=== PATIENT | female | born 1955 | race Caucasian/White ===

== ENCOUNTER 2016-05-05 07:50 | Day surgery (SDC) | payer OTHER ==
[~2016-05-05] VITALS: Ht 142.2 cm; Wt 42.0 kg
[~2016-05-05 07:50] MED LIST: ALPR-411 PO; ASPEC81 PO; CLINDAMYCIN 600 MG/54 ML D5W IV SCH; CRG625 PO; LSN5 PO; MULT-884 PO
[2016-05-05] MEDS ORDERED: ROSU20TA PO (08:34)
[2016-05-05] MEDS ORDERED: ZOLP5TAB PO (08:34)
[2016-05-05 08:36] VITALS: BP 174/71; PULSE 72; TEMP 36.8; O2SAT 94; Ht 142.2 cm; Wt 42.0 kg
--- NOTE | 2016-05-05 09:08 | History & Physical Bridge Note ---
H&P Re-Evaluation Bridge Note: I have examined the patient, reviewed the History & Physical and in the interval since the performance of the History & Physical I have noted the following changes of clinical significance: No changes noted
--- NOTE | 2016-05-05 09:08 | Procedure Note ---
Pre-Mod Sedation Assessment General Date of Moderate Sedation: May 05, 2016. Vital Signs: Vital Signs Past 12 Hours Date Time Temp Pulse Resp B/P Pulse Ox O2 Delivery O2 Flow Rate FiO2 05/05/16 08:36 36.8 72 20 174/71 94 Room Air Review Cardiovascular: regular rate, rhythm Abdomen: soft Lungs: lungs clear Airway Class: II Pre-Sedation Airway Assessment Oral Cavity: Dentures Able to Visualize Vocal Cords: No Short Thick Neck: No Hx of Sleep Apnea: No Smoking Status: Light Tobacco Smoker Mallampati Classification: Class II ASA Classification: Class II Procedure Planning Contraindications-for Mod Sed: None Yes Notes The planned sedation has been discussed with the patient and consent obtained. I have identified the patient, determined the appropriateness of sedation and have assessed the patient immediately prior to the procedure. All medicine(s) and interventions are by my order.
[2016-05-05] MEDS ORDERED: MIDAZOLAM HCL 5 MG/ML 1 ML VIAL ONE (09:24)
[2016-05-05] MEDS ORDERED: LIDOCAINE HCL 1% 20 ML VIAL ONE (09:24)
[2016-05-05] MEDS ORDERED: FENTANYL CITRATE INJ 50 MCG/1 ML 2 ML VIAL ONE (09:24)
[2016-05-05] MEDS ORDERED: BUPIVACAINE 0.5 % 5 MG/1 ML MPF 30ML VIAL ONE (09:24)
[2016-05-05] MEDS ORDERED: BACITRACIN 50000 UNIT VIAL ONE (09:25)
--- NOTE | 2016-05-05 10:25 | Procedure Note ---
Post-Mod Sedation Assessment General Date of Moderate Sedation May 05, 2016. Vital Signs: Vital Signs Past 12 Hours Date Time Temp Pulse Resp B/P Pulse Ox O2 Delivery O2 Flow Rate FiO2 05/05/16 10:15 68 18 112/60 99 Room Air 05/05/16 08:36 36.8 72 20 174/71 94 Room Air Review - Discharge Criteria Vital Signs Stable: Yes Alert/Oriented/Conversant: Yes Returned to Baseline Mental St: Yes Nausea Absent/Minimal: Yes Pain/Discomfort/Absent/Minimal: Yes Normal/Baseline Respirations: Yes Active Bleeding?: No Pt Received D/C Instructions: N/A Prescriptions Given: None Specific Proced. D/C Criteria Distal Pulses Present (Cardiac: N/A Groin site assessed-Card Cath: N/A Voided Prior To Discharge: N/A Discharged Patients Adult Escort/Transportation: N/A
--- NOTE | 2016-05-05 10:27 | [facility] Post Operative Brief Note ---
Immediate Operative Summary Operative Date May 05, 2016. Pre-Operative Diagnosis biv icd at [facility], [facility] Post-Operative Diagnosis same Procedure(s) Performed bi ventricular rate responsive icd generator change Surgeon chris ace Electrical Equipment Technician Surgeon(s) none Estimated Blood Loss <5cc Findings none Fluids (cc crystalloids) 100cc Specimens none Drains none Anesthesia 4mg versed and 100mcg fentanyl Complication(s) None Disposition asu/mtu
--- NOTE | 2016-05-05 10:31 | Discharge Instructions ---
Discharge Instructions Date of Service May 05, 2016. Visit Reason for Visit: Idiopathic Cardiomyopathy Discharge Discharge Diagnosis / Problem: BiV ICD at [facility] Discharge Goals Goal(s): Improve function Activity Recommendations Activity Limitations: as noted below Lifting Limitations: no more than 10 pounds (no more than 10 pounds with left arm for 2 weeks) Shower/Bathe: tomorrow Driving or Machine Use: resume 1 day after discharge Anesthesia . Post Anesthesia Instructions: If you have had General Anesthesia or IV Sedation: * Do not drive today. * Resume driving when surgeon permits. * Do not make important decisions or sign legal documents today. * Call surgeon for: 1. Temperature elevations greater than 101 degrees F. 2. Uncontrollable pain. 3. Excessive bleeding. 4. Persistent nausea and vomiting. 5. Medication intolerance (nausea, vomiting or rash). * For nausea and vomiting use only clear liquids such as: tea, soda, bouillon until nausea subsides, then gradually increase diet as tolerated. * If you have any concerns or questions, call your surgeon's office. If physician is unavailable and it is an emergency, call 911 or go to the nearest emergency room. . Instructions / Follow-Up Instructions / Follow-Up ACTIVITY RECOMMENDATIONS: * Do not raise affected arm over head for 2 weeks. SPECIAL CARE INSTRUCTIONS: * If bleeding occurs, apply direct pressure to area for 5 minutes. * Call your doctor if you have severe pain, fever, drainage or bleeding at site. * Keep dressing on and dry for 48 hours then remove. * Keep any scheduled doctor's appointment. * Implant Card - hand held device with website information given. SKIN IRRITATION: * You may experience some redness and/or swelling in the area where radiation was administered. If any skin irritation occurs, please contact your family physician. FOLLOW UP VISIT: Keep any scheduled doctor appointments. Diet Recommendations Recommended Home Diet: resume previous diet, low sodium Procedures Procedures Performed: bi ventricular rate responsive icd generator change Pending Studies Studies pending at discharge: no Medical Emergencies . Who to Call and When: Medical Emergencies: If at any time you feel your situation is an emergency, please call 911 immediately. . Non-Emergent Contact Non-Emergency issues call your: Implementation Director . . "Provider Documentation" section prepared by Magaly Calhoun.
[2016-05-05 10:35] VITALS: BP 136/63; PULSE 76; TEMP 36.3; O2SAT 97
[2016-05-05 10:45] VITALS: O2SAT 96
[2016-05-05 10:46] VITALS: BP 131/83; PULSE 99; O2SAT 94
[2016-05-05 11:01] VITALS: BP 154/71; PULSE 66; O2SAT 96
[2016-05-05 11:15] VITALS: BP 149/62; PULSE 68; TEMP 36.6; O2SAT 98
--- NOTE | 2016-05-05 11:31 | OPERATIVE REPORT ---
DATE OF OPERATION: 05/05/2016 PREOPERATIVE DIAGNOSIS: Biventricular implantable cardiac defibrillator at [facility], nonischemic cardiomyopathy. POSTOPERATIVE DIAGNOSIS: Same. PROCEDURE: Rate responsive biventricular implantable cardiac defibrillator generator change under monitored conscious sedation. SURGEON: Dr. Magaly Calhoun. ENDOSCOPY SUPPORT SPECIALIST: None. ANESTHESIA: Monitored conscious sedation, a total of 4 mg of Versed, 100 mcg of fentanyl. Administered via the geotechnical laboratory technician nurse Radha Krishnan. START TIME: 9:38. END TIME: 10:15. INTRAVENOUS FLUIDS: 100 mL BLOOD LOSS: Less than 10 mL COMPLICATIONS: None. CONDITION: Stable. URINE OUTPUT: Not applicable. SPECIMENS: None. FINDINGS: None. DRAINS: None. INDICATIONS: This is a 60-year-old female who has a past medical history of nonischemic cardiomyopathy, initially diagnosed in 2011 with an ejection fraction of 30%. She underwent a biventricular ICD at that time. Her ejection fraction has normalized by her most recent echo in 2017. Chronic systolic congestive heart failure, [place] Heart Association class II, left bundle-branch block, hyperlipidemia, celiac disease, iron deficiency anemia, chronic tobacco use. The patient was found on most recent device interrogation to have hit [facility] and was recommended generator change. CONSENT: Consent was obtained prior to the patient going into the electrophysiology lab. The patient was explained the risks, benefits and alternatives to the procedure. Risks include but not limited to sudden cardiac , cardiac arrhythmias, cerebrovascular accident, myocardial infarction, bleeding and infection. The patient understood these risks and agreed to the procedure as planned. Informed consent was obtained. DESCRIPTION OF PROCEDURE: The patient was brought into the electrophysiology lab in a fasting state. She was connected to continuous music composer. A timeout was performed to ensure patient's identity and procedure correctly. The patient was prepped and draped over the left infraclavicular space in normal surgical standard fashion. Monitored conscious sedation was given throughout the procedure for the patient's comfort level. Wall precautions were maintained throughout the procedure. The patient received prophylactic antibiotics prior to incision. 15 mL of 1% lidocaine-bupivacaine mixture were given over the prior surgical incision. Incision was made over the prior surgical incision. Blunt dissection was performed down to the pulse generator. The capsule was disrupted using iris scissors and the defibrillator was freed from the capsule. The defibrillator was then removed from the pocket and detached from the leads. The leads were tested intraoperatively, see below for results. The capsule was disrupted inferiorly and caudally to allow for new blood flow. The pocket was flushed with copious amounts of bacitracin saline wash and inspected for hemostasis. The new defibrillator was then attached to the leads, making sure that the pins were in appropriate position, passed set screws, and the set screws were all tightened. The new defibrillator was then placed in the pocket, making sure that the leads were lying flat beneath the device. The incision was then closed in a 3-layer fashion using 2-0 Vicryl interrupted suture, followed by 3-0 Vicryl interrupted suture, followed by a 4-0 Monocryl running stitch, and Dermabond was applied, followed then by a pressure dressing. EQUIPMENT: 1. Explanted generator is a [employer] CRTD, implanted 08/27/2011, serial #[id number], model number F244KUA, voltage 2.62 volts and a hit IMAGING ASSISTANT on 04/06/2016. 2. New defibrillator generator is a [employer] MRI CRTD SureScan [id number], serial #[id number]. 3. Right atrial lead is model #5076-45, serial #[id number], implanted 08/27/2011. 4. Right ventricular lead model #6935-58, serial #[id number], implanted 08/27/2011. 5. Left ventricular lead model #4196-88, serial #[id number], implanted 08/27/2011. 6. The SVC pin plug is lot #[id number], expiration is 10/25/2019. INTRAOPERATIVE TESTIN. Right atrial lead: P-waves 1.5 millivolts, impedance 460 ohms, threshold 0.6 volts at 1.1 milliamps. 2. Right ventricular lead: R-waves 15 millivolts, impedance 538 ohms, threshold 0.5 volts at 0.8 milliamps. 3. Left ventricular lead: Programmed LV ring to RV coil, impedance 543 ohms, threshold 0.6 volts at 0.9 milliamps. FINAL PARAMETERS THROUGH THE DEVICE: 1. Right atrial lead: P-waves 1 millivolt, impedance 399 ohms, threshold 0.75 volts at 0.4 milliseconds. 2. Right ventricular: R-waves 16.1 millivolts, impedance 418 ohms, threshold 0.75 volts at 0.4 milliseconds. 3. Left ventricular: Programmed LV ring to RV coil, impedance 456 ohms, threshold 0.75 volts at 0.4 milliseconds. 4. RV coil: Impedance of 75 ohms. FINAL PARAMETERS: DDD 60/130. Right atrial and right ventricular settings, the amplitude is 1.5 millivolts, pulse width 0.4 milliseconds, sensitivity 0.3 millivolts. The left ventricular amplitude is 1.25 volts and the pulse width is 0.4 milliseconds. There is VT monitor zone at 140 beats per minute with the detection interval of 28 and a VF zone of 188 beats per minute with the detection interval 24/32. The DFT at implant was 15 joules. IMPRESSION: Successful biventricular rate responsive implantable cardiac defibrillator generator change secondary to device at [facility] and nonischemic cardiomyopathy. PLAN: Monitor the patient post-sedation. She can shower tomorrow and drive tomorrow. No heavy lifting with the left arm for 2 weeks. She should follow up in our [facility] in 7-10 days for device and wound check, and she can remove the pressure dressing tomorrow. I attest to the content of the Intraoperative Record and any orders documented therein. Any exceptio ns are noted below.
== END 2016-05-05 11:50 | disposition home or self-care (01) ==
LOC: C.ACU 07:50
PROVIDERS: ATTEND Internal Medicine
DX: Z45.02 Encounter for adjustment and management of automatic implantable cardiac defibrillator (principal); I42.8 Other cardiomyopathies; I50.22 Chronic systolic (congestive) heart failure; I44.7 Left bundle-branch block, unspecified; K90.0 Celiac disease; E78.5 Hyperlipidemia, unspecified; Z79.82 Long term (current) use of aspirin; Z79.899 Other long term (current) drug therapy; Z98.890 Other specified postprocedural states; Z98.41 Cataract extraction status, right eye; F17.200 Nicotine dependence, unspecified, uncomplicated; Z88.0 Allergy status to penicillin; Z01.810 Encounter for preprocedural cardiovascular examination; Z80.9 Family history of malignant neoplasm, unspecified; Z82.49 Family history of ischemic heart disease and other diseases of the circulatory system; Z83.3 Family history of diabetes mellitus